=== PATIENT | female | born 1975 | race Caucasian/White ===

== ENCOUNTER 2019-12-07 10:22 | Emergency (ER) | payer OTHER ==
[2019-12-07] MEDS ORDERED: TORAdol 30 mg Injection IM ONE (10:50)
[2019-12-07] MEDS ORDERED: Phenergan 25 MG INJ IM ONE (10:50)
--- NOTE | 2019-12-07 10:58 | ERPHSYRPT ---
- History of Present Illness Time Seen by Provider: 12/07/19 10:40 Source: patient Patient Subjective Stated Complaint: Pt stated that she was walking out of a house and slipped and her right knee went behind her and her right foot rolled causing pain to both Triage Nursing Assessment: Pt brought to the ER by her , pt unable to stand on right leg or foot, swelling to lateral right ankle, tachycardic, rates pain as 6 when not touching, denies hitting head or losing conscousness Physician History: Patient is a 44-year-old female presents to our ED with complaints of right knee ankle and foot pain. Patient states she had a slip and fall prior to arrival. Patient inverted her right ankle and hyperflexed her right knee. Patient fell to the ground. No other injuries. No BHT or LOC. No neck pain. Pain described as an ache that is well localized. No radiation. Pain worse with movement and palpation. Pain improved with rest. Symptoms are mild to moderate in intensity. Patient is otherwise healthy. She voices no other complaints at this time. Patient denies the possibility of . Method of Injury: fell Occurred: just prior to arrival Quality: constant Severity of Pain-Max: moderate Severity of Pain-Current: mild Lower Extremities Pain: knee: right, thigh: left, foot: right, ankle: right Modifying Factors: Improves With: nothing, movement Allergies/Adverse Reactions: No Known Drug Allergies Allergy (Verified 12/07/19 10:43) Home Medications: Buspirone HCl [Buspar] 15 mg PO BID 12/07/19 [History] Cyclobenzaprine HCl 10 mg [Cyclobenzaprine 10 MG] 10 mg PO BID 12/07/19 [History] Duloxetine HCl 30 mg [Cymbalta 30 MG Capsule] 30 mg PO DAILY 12/07/19 [History] Norethindrone-E.estradiol-Iron [Junel Fe 1 mg-20 Mcg Tablet] 1 tab PO DAILY 12/07/19 [History] Zolpidem Tartrate 5 mg [Ambien 5 MG Tablet] 5 mg PO DAILY 12/07/19 [History] Travel Risk - International Travel Have you traveled outside of the country in past 3 weeks: No - Coronavirus Screening Are you exhibiting any of the following symptoms?: No Close contact with a COVID-19 positive Pt in past 14-21 Days: No - Review of Systems Constitutional: No Symptoms, No Fever, No Chills Eyes: No Symptoms Ears, Nose, & Throat: No Symptoms Respiratory: No Symptoms, No Cough, No Dyspnea Cardiac: No Symptoms, No Chest Pain, No Edema, No Syncope Abdominal/Gastrointestinal: No Symptoms, No Abdominal Pain, No Nausea, No Vomiting, No Diarrhea Genitourinary Symptoms: No Symptoms, No Dysuria Musculoskeletal: No Symptoms, No Back Pain, No Neck Pain Skin: No Rash Neurological: No Symptoms, No Dizziness, No Focal Weakness, No Sensory Changes Psychological: No Symptoms Endocrine: No Symptoms Hematologic/Lymphatic: No Symptoms Immunological/Allergic: No Symptoms All Other Systems: Reviewed and Negative - Past Medical History Pertinent Past Medical History: Yes Musculoskeletal History: Fibromyalgia Psycho-Social History: Anxiety - Past Surgical History Past Surgical History: Yes Gastrointestinal: Cholecystectomy Female Surgical History: Dilation & Curettage, Tubal Ligation - Social History Smoking Status: Never smoker Exposure to second hand smoke: No Drug Use: none Patient Lives Alone: No - Female History Hx Last Menstrual Period: 11/29/2019 Hx Now: No - Nursing Vital Signs Nursing Vital Signs: Initial Vital Signs Temperature 98.0 F 12/07/19 10:34 Pulse Rate 115 H 12/07/19 10:34 Blood Pressure 125/92 12/07/19 10:34 O2 Sat by Pulse Oximetry 96 12/07/19 10:34 Pain Scale Pain Intensity 6 - Physical Exam General Appearance: alert Eyes, Ears, Nose, Throat Exam: moist mucous membranes Neck Exam: non-tender, supple Cardiovascular/Respiratory Exam: chest non-tender, normal breath sounds, regular rate/rhythm, no respiratory distress Gastrointestinal/Abdominal Exam: non-tender, guarding Back Exam: normal inspection, No vertebral tenderness Hips Exam: bilateral: non-tender, normal inspection, normal range of motion, no evidence of injury Legs Exam: bilateral leg: non-tender, normal inspection, normal range of motion, no evidence of injury Knees Exam: bilateral knee: non-tender, normal inspection, normal range of motion, no evidence of injury Ankle Exam: right ankle: limited range of motion, pain, left ankle: non-tender, normal inspection, normal range of motion, no evidence of injury Foot Exam: right foot: limited range of motion, pain, swelling (Tenderness to palpation at right knee right ankle and foot PT DP pulses palpable. Compartments are soft. Cap refill less than 2 seconds. Range of motion limited by pain at knee and ankle joint.), left foot: non-tender, normal inspection, normal range of motion, no evidence of injury Neuro/Tendon Exam: normal sensation, normal motor functions Mental Status Exam: alert, oriented x 3, cooperative Skin Exam: normal color, warm, dry SpO2 Interpretation: normal SpO2: 96 O2 Delivery: Room Air - Course Nursing assessment & vital signs reviewed: Yes - Radiology Exams Ankle X-ray Interpretation: Teleradiologist Report (Soft tissue swelling and small posterior heel spur. No other bony articular or soft tissue abnormalities.) Foot X-ray Interpretation: Teleradiologist Report (3 nonweightbearing views of the right foot demonstrate small posterior heel spur no other bony articular or soft tissue abnormalities.) Knee X-ray Interpretation: Teleradiologist Report (Right knee demonstrates minimal medial joint space narrowing and tiny patella spurring. No bony articular soft tissue abnormalities.) Ordered Tests: Active Orders 24 hr Category Date Time Status ANKLE (3 VIEWS) Stat Exams 12/07/19 10:51 Completed FOOT (MINIMUM 3 VIEWS) Stat Exams 12/07/19 10:51 Completed KNEE (1 OR 2 VIEW) Stat Exams 12/07/19 10:51 Completed Medication Summary Discontinued Medications Generic Name Dose Route Start Last Admin Trade Name Freq PRN Reason Stop Dose Admin Ketorolac Tromethamine 60 mg 12/07/19 10:50 12/07/19 11:21 Toradol 30 Mg Injection IM 12/07/19 10:51 60 mg STAT ONE Administration Ketorolac Tromethamine Confirm 12/07/19 11:19 Toradol 30 Mg Injection Administered 12/07/19 11:20 Dose 30 mg .ROUTE .STK-MED ONE Ketorolac Tromethamine Confirm 12/07/19 11:22 Toradol 30 Mg Injection Administered 12/07/19 11:23 Dose 30 mg .ROUTE .STK-MED ONE Ketorolac Tromethamine Confirm 12/07/19 11:24 Toradol 30 Mg Injection Administered 12/07/19 11:25 Dose 30 mg .ROUTE .STK-MED ONE Promethazine HCl 25 mg 12/07/19 10:50 12/07/19 11:21 Phenergan 25 Mg Inj IM 12/07/19 10:51 25 mg STAT ONE Administration Promethazine HCl Confirm 12/07/19 11:19 Phenergan 25 Mg Inj Administered 12/07/19 11:20 Dose 25 mg .ROUTE .STK-MED ONE Promethazine HCl Confirm 12/07/19 11:24 Phenergan 25 Mg Inj Administered 12/07/19 11:25 Dose 25 mg .ROUTE .STK-MED ONE - Progress Progress: improved Progress Note: 12/07/19 12:11 Patient reassessed. Pain improved. Aramis wrap provided. Bilateral axillary crutches provided no fractures or dislocations. Patient agrees to follow-up with her primary care doctor within 48 hours for reevaluation. Counseled pt/family regarding: diagnosis, need for follow-up, rad results - Departure Departure Disposition: Home (The) Clinical Impression: Heel spur, Fall, Ankle sprain, Knee sprain Condition: Stable Critical Care Time: No Referrals: DARLINE BURCH MD [Primary Care Provider] - Additional Instructions: Discharge/Care Plan APARNA RAMOS was seen on 12/07/19 in the Emergency Room. The patient was counseled regarding Diagnosis,Lab results, Imaging studies, need for follow up and when to return to the Emergency Room. Prescriptions given: Discharge Note I have spoken with the patient and/or caregivers. I have explained the patient's condition, diagnosis and treatment plan based on the information available to me at this time. I have answered the patient's and/or caregiver's questions and addressed any concerns. The patient and/or caregivers have as good understanding of the patient's diagnosis, condition and treatment plan as can be expected at this point. The vital signs have been stable. The patient's condition is stable and appropriate for discharge from the emergency department. The patient will pursue further outpatient evaluation with the primary care physician or other designated or consulting physician as outlined in the discharge instructions. The patient and/or caregivers are agreeable to this plan of care and follow-up instructions have been explained in detail. The patient and/or caregivers have received these instruction. The patient/and or caregivers are aware that any significant change in condition or worsening of symptoms should prompt an immediate return to this or the closest emergency department or call 911.
[2019-12-07] MEDS ORDERED: TORAdol 30 mg Injection ONE ×3 (11:19→11:24)
[2019-12-07] MEDS ORDERED: Phenergan 25 MG INJ ONE ×2 (11:19→11:24)
--- NOTE | 2019-12-07 11:39 | XRAY ---
Indication: Pain following fall. Comparison: None AP/crosstable lateral right knee demonstrates minimal medial joint space narrowing and tiny patella spurring. No other bony, articular, or soft tissue abnormalities.
--- NOTE | 2019-12-07 11:39 | XRAY ---
Indication: Pain following fall. Comparison: None 3 view right ankle demonstrates mild soft tissue swelling and small posterior heel spur. No other bony, articular, or soft tissue abnormalities.
--- NOTE | 2019-12-07 11:41 | XRAY ---
Indication: Pain following fall. Comparison: None 3 nonweightbearing views right foot demonstrates small posterior heel spur. No other bony, articular, or soft tissue abnormalities.
[2019-12-07 11:48] VITALS: BP 174/94; PULSE 104
[2019-12-07 12:08] VITALS: O2SAT 96
== END 2019-12-07 12:20 | disposition home or self-care (01) ==
LOC: ED 10:22
DX: M77.30 Calcaneal spur, unspecified foot (principal); W01.198A Fall on same level from slipping, tripping and stumbling with subsequent striking against other object, initial encounter; Y93.89 Activity, other specified; Y92.9 Unspecified place or not applicable; S93.401A Sprain of unspecified ligament of right ankle, initial encounter; S83.91XA Sprain of unspecified site of right knee, initial encounter; M79.89 Other specified soft tissue disorders; Z79.899 Other long term (current) drug therapy; F41.9 Anxiety disorder, unspecified
CPT/HCPCS: 73560; 73610; 73630; 96372; 99284; J1885; J2550

== ENCOUNTER 2021-01-15 06:28 | Day surgery (SDC) | payer OTHER ==
[2021-01-15] MEDS ORDERED: Zofran 4 MG/2 ML VIAL ONE ×2 (06:51→08:36)
[2021-01-15] MEDS ORDERED: CEFAZOLIN 2 GM-D5W BAG** 2 GM/50 ML ML IV ONE (06:51)
[2021-01-15] MEDS ORDERED: Pepcid 20 MG VIAL IV ONE ×2 (06:51→06:52)
[2021-01-15] MEDS ORDERED: Zofran 4 MG/2 ML VIAL IV STA (06:52)
[2021-01-15] MEDS ORDERED: Lactated Ringers 1,000 ML IV SCH (07:00)
[2021-01-15] MEDS ORDERED: CEFAZOLIN 2 GM-D5W BAG** 2 GM/50 ML ML IV SCH (07:00)
[2021-01-15] MEDS ORDERED: Reglan 10 MG/2 ML IV ONE (07:37)
[2021-01-15] MEDS ORDERED: Xylocaine-Mpf 2% 5 Ml Vial ONE (08:36)
[2021-01-15] MEDS ORDERED: SUBLIMAZE 100 MCG/2 ML ONE ×2 (08:36→09:20)
[2021-01-15] MEDS ORDERED: DIPRIVAN 200 MG/20 ML IV ONE (08:36)
[2021-01-15] MEDS ORDERED: Decadron 4 MG INJ ONE (08:36)
[2021-01-15] MEDS ORDERED: Compazine 10 MG/2 ML ONE (09:20)
[2021-01-15 10:16] VITALS: O2SAT 94
[2021-01-15 10:26] VITALS: BP 133/77; PULSE 101
--- NOTE | 2021-01-16 09:12 | OP ---
SURGERY DATE/TIME: 01/15/2021 0839 PREOPERATIVE DIAGNOSIS: Abnormal uterine bleeding. POSTOPERATIVE DIAGNOSIS: Abnormal uterine bleeding. PROCEDURE: Hysteroscopy D&C with NovaSure ablation. SURGEON: Amari Burnett D.O. FENDER MECHANIC APPRENTICE: Bryn Deras surgical technician. ANESTHESIA: General. ESTIMATED BLOOD LOSS: Minimal. COMPLICATIONS: None. INDICATIONS: The risks, benefits, indications and alternatives of the procedure were reviewed with the patient prior to the procedure. The patient understood the risk of infection, bleeding, bowel injury, bladder injury, ureteral injury, uterine perforation, pelvic infection, thromboembolic disorder associated with the surgery however desires to have this surgery as a possible means to alleviate her current medical condition. DESCRIPTION OF PROCEDURE AND FINDINGS: At this point the patient is taken to the operating room, given general sedation, placed in dorsal lithotomy position. Prepped and draped in the usual sterile fashion. A weighted speculum is then placed in the patient's vagina and the anterior lip of the cervix was grasped with a single tooth tenaculum. Endocervical dilators were advanced through the endocervical canal as a means to dilate the cervix and the uterus was sounded to approximately 9 cm. From this point a 5 mm hysteroscope was then advanced through the endocervical canal where visualization revealed no gross abnormalities within the uterine cavity. The hysteroscope was then removed and the curette was then placed in towards the fundus of the uterus where curettage was performed in all quadrants of the uterus retrieving moderate amount of endometrial tissue. From this point hemostasis was obtained. From this point the NovaSure was then taken and was then taken through the endocervical canal toward the fundal region retracted approximately 1 cm and was then engaged. The NovaSure machine was then turned on for an ablative time of 1 minute and 11 seconds. The length was measured at 6 cm and the width was 3.5 cm. After completion of the ablation the NovaSure was disengaged and removed from the uterine cavity without complication. At this point hemostasis was obtained. At this point all instruments were then removed from the patient's vaginal region. The patient was then taken out of the dorsal lithotomy position, was taken out of anesthesia and was then taken to the recovery room in stable condition. All instruments and laps were accounted for x2.
== END 2021-01-15 10:18 | disposition home or self-care (01) ==
LOC: SDC 06:28
PROVIDERS: ATTEND Obstetrics & Gynecology
DX: N93.9 Abnormal uterine and vaginal bleeding, unspecified (principal); Z79.899 Other long term (current) drug therapy
CPT/HCPCS: 84703; 88305; J0690; J1100; J2405; J2704; J3010

== ENCOUNTER 2022-10-02 05:56 | Day surgery (SDC) | payer OTHER ==
[2022-10-02 06:17] LABS: HCG URINE TEST NEGATIVE (NEGATIVE)
[2022-10-02] MEDS ORDERED: Lactated Ringers 1,000 ML IV SCH (06:30)
[2022-10-02] MEDS ORDERED: Versed 2 MG/2 ML Injection IV PRN (07:18)
[2022-10-02] MEDS ORDERED: DIPRIVAN 200 MG/20 ML IV ONE ×2 (07:36→07:45)
[2022-10-02] MEDS ORDERED: Versed 2 MG/2 ML Injection ONE (07:36)
[2022-10-02] MEDS ORDERED: SUBLIMAZE 100 MCG/2 ML ONE (07:44)
[2022-10-02 08:52] VITALS: BP 97/77; PULSE 89; O2SAT 98
--- NOTE | 2022-10-02 09:13 | OP ---
SURGERY DATE/TIME: 10/02/2022 0734 PREOPERATIVE DIAGNOSIS: Screening colonoscopy. POSTOPERATIVE DIAGNOSIS: Normal colon. PROCEDURE: Colonoscopy. SURGEON: Graeme Martin M.D. ANESTHESIA: MAC by Fransisco Salgado CRNA. ESTIMATED BLOOD LOSS: None. SPECIMENS: None. DESCRIPTION OF PROCEDURE: After informed written consent was obtained, the patient was taken to the endoscopy suite. She was placed in the left lateral decubitus position and anesthesia was titrated to desired level of consciousness. Digital rectal exam showed normal sphincter tone and no internal lesions. The scope was inserted into the rectum and the entire colonic mucosa was traversed. There was some difficulty as she had a long tortuous colon but the level of the cecum was reached and verified with direct visualization of the ileocecal valve. Upon withdrawal careful mucosal inspection revealed no gross abnormalities. Prior to withdrawal retroflexion was performed and showed no internal lesions. The scope was removed. The patient was transferred to the recovery room in good condition. Of note, the patient had periods of apnea and increased oxygen requirement during the exam. Anesthesia expressed high likelihood of obstructive sleep apnea and recommended sleep study. I have discussed this with the patient's .
== END 2022-10-02 09:00 | disposition home or self-care (01) ==
LOC: SDC 05:56
PROVIDERS: ATTEND Family Medicine
DX: Z12.11 Encounter for screening for malignant neoplasm of colon (principal); G47.30 Sleep apnea, unspecified
CPT/HCPCS: 81025; J2250; J2704; J3010

== ENCOUNTER 2023-12-01 07:46 | Day surgery (SDC) | payer BC ==
[2023-12-01] MEDS ORDERED: CEFAZOLIN 2 GM/100 ML NaCl 2 GM/100 ML IVPB IV ONE (08:01)
[2023-12-01] MEDS: TYLENOL EXTRA STRENGTH 500 MG PO ONE (08:04)
[2023-12-01] MEDS: celeBREX 100 MG PO ONE (08:04)
[2023-12-01] MEDS: NEURONTIN PO ONE (08:04)
[2023-12-01] MEDS: Lactated Ringers 1,000 ML IV SCH (08:05)
[2023-12-01] MEDS: Decadron 4 MG PO ONE (08:05)
[2023-12-01 08:17] VITALS: RESP 18
[2023-12-01] MEDS: CEFAZOLIN 2 GM/100 ML NaCl 2 GM/100 ML IVPB IV SCH (08:20)
[2023-12-01 08:26] LABS: Absolute Neutrophil Ct (ANC) 5.62 x10^3/uL (1.56-6.13); BASOPHIL % 0.4 % (0.1-1.2); Basophil (Absolute #) 0.03 x10^3/uL (0.01-0.08); Eosinophil (Absolute #) 0.16 x10^3/uL (0.04-0.36); Hematocrit 38.2 % (34.1-44.9); Hemoglobin 12.5 g/dL (11.2-15.7); IMMATURE GRAN # 0.05 x10^3u/L (0.001-0.031); IMMATURE GRAN % 0.6 % (0.001-0.429); Lymphocyte (Absolute #) 1.77 x10^3/uL (1.18-3.74); Lymphocytes % 21.7 % (19.3-51.7); Mean Cell Volume 90.3 fL (79.4-94.8); Mean Corpuscular Hemoglobin 29.6 pg (25.6-32.2); Mean Corpuscular Hgb Concent. 32.7 g/dL (32.2-35.5); Monocyte (Absolute #) 0.53 x10^3/uL (0.24-0.86); Monocytes % 6.5 % (4.7-12.5); Neutrophil % 68.8 % (34.0-71.1); Platelet Count 299 x10^3/uL (182-369); Red Blood Count 4.23 x10^6/uL (3.93-5.22); Red Cell Distribution Width 13.4 % (11.7-14.4); White Blood Count 8.2 x10^3/uL (3.98-10.04)
[2023-12-01 08:50] LABS: ANION GAP 11.8 MEQ/L (5-15); Calcium 9.1 mg/dL (8.4-10.2); Creatinine 1 0.53 mg/dL (0.52-1.04); EST GLOMERULAR FILTRATION RATE 112.6 ML/MIN; Potassium 4.3 mmol/L (3.5-5.1)
[2023-12-01 08:53] LABS: HCG SERUM TEST NEGATIVE (NEGATIVE)
[2023-12-01] MEDS: Versed 2 MG/2 ML Injection IV ONE (09:30)
[2023-12-01] MEDS ORDERED: Marcaine 0.5%/Epinephrine 10 ML ONE (10:07)
[2023-12-01] MEDS ORDERED: Naropin 0.5% 30 ML VIAL ONE (10:07)
[2023-12-01] MEDS ORDERED: SUBLIMAZE 100 MCG/2 ML ONE ×2 (10:40→13:36)
[2023-12-01] MEDS ORDERED: ROCURONIUM BROMIDE IV ONE (10:41)
[2023-12-01] MEDS ORDERED: DIPRIVAN 200 MG/20 ML IV ONE (10:41)
[2023-12-01] MEDS ORDERED: Versed 2 MG/2 ML Injection ONE (10:43)
[2023-12-01] MEDS ORDERED: REMIFENTANIL HCL IV ONE (11:34)
[2023-12-01] MEDS ORDERED: BRIDION 200MG/2ML IV ONE (12:54)
--- NOTE | 2023-12-01 13:02 | XRAY ---
Indication: Left ankle ORIF. Syndesmosis fixation. Intraoperative fluoroscopy provided for 2 minutes 45 seconds. Numerous digital spot and cine images submitted for interpretation ultimately demonstrates lateral fixation plate and 6 screws fixating lateral malleolus fracture in good apposition/alignment. Correlate with intraoperative findings/report.
[2023-12-01] MEDS ORDERED: Hydromorphone 1 mg/ml Injection ONE ×2 (13:37→14:23)
[2023-12-01] MEDS ORDERED: Zofran 4 MG/2 ML VIAL ONE (14:00)
[2023-12-01 15:17] VITALS: BP 119/92; PULSE 115; TEMP 97.5; O2SAT 92
--- NOTE | 2023-12-01 15:17 | XRAY ---
Two minutes and 45 seconds of fluoroscopy was used in surgery for a left ankle ORIF. Syndesmosis fixation.
--- NOTE | 2023-12-02 12:43 | OP ---
SURGERY DATE/TIME: 12/01/2023 7788 - [id number] PREOPERATIVE DIAGNOSES: 1) Left ankle fracture, bimalleolar equivalent. 2) Syndesmotic disruption. 3) Pain, left ankle. 4) Instability with gait. POSTOPERATIVE DIAGNOSES: 1) Left ankle fracture, bimalleolar equivalent. 2) Syndesmotic disruption. 3) Pain, left ankle. 4) Instability with gait. PROCEDURE: Open reduction and internal fixation left ankle bimalleolar equivalent with a 2 syndesmotic ligament repair. SURGEON: Luiz Hassan MD ANESTHESIA: General plus popliteal block postoperatively. HEMOSTASIS: Thigh tourniquet set to 300 mmHg for a total of 42 total tourniquet minutes. ESTIMATED BLOOD LOSS: Approximately 2 mL. MATERIALS: An ALTS MVX ankle 6 hole one-third tubular with a combination of long locking screws with two 3.5 x 48 and 42 syndesmotic screws 4-0 Monocryl and 3-0 nylon. INJECTABLES: See anesthesia report for details. INDICATIONS FOR PROCEDURE: The patient is a very pleasant 48-year-old woman. The patient has fallen in her yard resulting in a twisting and a popping sensation to her ankle. X-rays were taken demonstrating a fracture of the fibula. There were some faint radiolucencies over the posterior malleolus, which a CT was obtained, demonstrating a posterior malleolar fracture. By Lauge-Myers classification, this does demonstrate at least disruption from the AITFL, the fibula, as well as the PITFL/posterior malleolar fracture, which does classify this as an unstable fracture and a surgical issue. Patient has been made aware of all risks, complications and benefits of surgical intervention at this time, including but not limited to infection, hematoma, seroma, possibility of delayed wound healing, nonwound healing, and possible need for further surgical intervention at a later date. No guarantees were provided as to the outcome of surgery at this time. Plenty of time was allowed for her and her to ask questions, which were answered to their apparent satisfaction. At this time, we decided to proceed. DESCRIPTION OF PROCEDURE AND FINDINGS: Patient was brought into the operating room, placed on the operating room table in the supine position. At this time, general anesthesia was administered until the patient was adequately sedated. Following this, the left lower extremity was prepped and draped in a typical sterile fashion. Prior to prepping and draping the leg, a well-padded thigh tourniquet was applied to the patient's left thigh and the tourniquet was set to 300 mmHg. At this time, under fluoroscopic guidance, the lateral aspect of the fibula was identified. The bisection of the fibula was obtained and a skin marker was utilized to bruna out the site. Following this, a linear incision utilizing a 10 blade was carried down through that same marker site, quickly finding the fracture site, which was cleansed with copious amounts of sterile saline and the hematoma was released from the fracture site at this time. A pointed reduction forceps was introduced and a 6 hole one-third tubular plate was introduced laterally, making sure the position was adequate and fixating with a combination of locking and nonlocking screws. Following this, the syndesmosis was reduced. It was stressed, deeming there was gapping of the tibial-fibular overlap. Decision was made at this time to proceed with syndesmotic fixation. Given patient's body habitus, decision was made to proceed with 3.5 mm screws, one measuring 42 mm proximally and 48 mm distally. The orientation was checked and deemed to be in an adequate position, making sure that the fibula was sitting within the incisura while holding the reduction anteriorly. From that standpoint, final pictures were taken. Copious amounts of sterile saline were utilized to flush the surgical site. Following this, a 4-0 Monocryl was utilized to coapt the subcutaneous skin edges and the skin was then everted in a horizontal mattress-type fashion with 3-0 nylon. Following this, a dressing consisting of Betadine, Adaptic, 4 x 4, Kerlix, ABD and a well-padded posterior splint with sugar-tong was applied to the left lower extremity with the foot orthogonal relative to the longitudinal axis of the leg. Patient was then provided a popliteal and saphenous block in the OR prior to awakening. Then, was reversed from anesthesia and returned to the postoperative anesthesia care unit with vital signs stable and vascular status intact. Patient handled the anesthesia as well as the procedure without significant complication. Postoperative orders as indicated in the patient's discharge chart.
== END 2023-12-01 15:30 | disposition home or self-care (01) ==
LOC: SDC 07:46
PROVIDERS: ATTEND Podiatrist Foot & Ankle Surgery
DX: S82.842A Displaced bimalleolar fracture of left lower leg, initial encounter for closed fracture (principal); S93.432A Sprain of tibiofibular ligament of left ankle, initial encounter; M25.572 Pain in left ankle and joints of left foot; R26.89 Other abnormalities of gait and mobility
CPT/HCPCS: 27814; 27829; 36415; 73610; 76000; 76937; 80048; 84703; 85025; 93005; C1713; C1769; J0690; J1170; J2250; J2405; J2704; J2795; J3010; A9270-GY

== ENCOUNTER 2025-03-21 06:31 | Day surgery (SDC) | payer OTHER ==
[2025-03-21] MEDS ORDERED: CEFAZOLIN SODIUM ONE (07:02)
[2025-03-21] MEDS: Lactated Ringers 1,000 ML IV SCH (07:15)
[2025-03-21 07:20] VITALS: RESP 18
[2025-03-21 07:41] LABS: HCG SERUM TEST NEGATIVE (NEGATIVE)
[2025-03-21 07:42] LABS: Calcium 9.3 mg/dL (8.4-10.2); Carbon Dioxide 23.0 mmol/L (22-30); Creatinine 1 0.79 mg/dL (0.52-1.04); EST GLOMERULAR FILTRATION RATE 90.5 ML/MIN; Glucose 154.0 mg/dL (74-106); Potassium 4.2 mmol/L (3.5-5.1)
[2025-03-21] MEDS ORDERED: Versed 2 MG/2 ML Injection ONE (09:14)
[2025-03-21] MEDS ORDERED: SUBLIMAZE 100 MCG/2 ML ONE ×3 (09:14→11:27)
[2025-03-21] MEDS ORDERED: Pre-Attached Lta Kit TP ONE (09:14)
[2025-03-21] MEDS ORDERED: TORAdol 30 mg Injection ONE (09:19)
[2025-03-21] MEDS ORDERED: propofoL IV ONE ×2 (09:19→09:20)
[2025-03-21] MEDS ORDERED: Zofran 4 MG/2 ML VIAL ONE ×2 (09:19→11:43)
[2025-03-21] MEDS ORDERED: DEXMEDETOMIDINE 80 MCG/20ML-NS IV ONE (09:19)
[2025-03-21] MEDS ORDERED: Quelicin Fliptop 200 MG/10 ML ONE (09:19)
[2025-03-21] MEDS ORDERED: PHENYLEPHRINE HCL ONE (09:43)
[2025-03-21] MEDS ORDERED: Ephedrine Sulfate 50 MG/ML ONE (09:43)
[2025-03-21] MEDS ORDERED: ROBINUL ONE (09:45)
[2025-03-21] MEDS ORDERED: ROCURONIUM BROMIDE IV ONE ×2 (09:50→10:44)
[2025-03-21] MEDS ORDERED: Sensorcaine 0.25% 10 ML ONE (10:23)
[2025-03-21] MEDS ORDERED: Lactated Ringers 1,000 ML IV ONE (10:25)
[2025-03-21] MEDS ORDERED: DILAUDID 0.5 MG/0.5 ML SYRINGE ONE (11:27)
[2025-03-21 12:36] VITALS: BP 105/67; PULSE 102; O2SAT 96
[2025-03-21 12:40] VITALS: TEMP 96.7
--- NOTE | 2025-03-23 12:20 | OP ---
SURGERY DATE/TIME: 03/21/2025 [id number] PREOPERATIVE DIAGNOSES: 1) Postmenopausal bleeding. 2) History of previous endometrial ablation. POSTOPERATIVE DIAGNOSES: 1) Postmenopausal bleeding. 2) History of previous endometrial ablation. 3) Inadvertent uterine perforation. PROCEDURE: Hysteroscopy, dilatation and curettage, with subsequent diagnostic laparoscopy. SURGEON: Stevie Burnett DO WORK ORDER CLERK: Viji Lee ANESTHESIA: General. ESTIMATED BLOOD LOSS: Minimal. COMPLICATIONS: None. INDICATIONS: The risks, benefits, indications, and alternatives of the procedure were reviewed with the patient prior to procedure. Patient understood the risk of infection, bleeding, bowel injury, bladder injury, ureteral injury, uterine perforation, pelvic infection, thromboembolic disorder associated with the surgery, and desired to have the surgery as a possible means to alleviate her current medical condition. DESCRIPTION OF PROCEDURE AND FINDINGS: At this point, the patient was taken to the operating room, given general sedation, placed in dorsal lithotomy position, and prepped and draped in the usual sterile fashion. A weighted speculum was then placed in the patient's vagina and the anterior lip of the cervix was grasped with a single-tooth tenaculum. Endocervical dilators were advanced through the endocervical canal as a means to dilate the cervix and a 5 mm hysteroscope was then placed into the uterus where visualization appeared to have significant scarring within the uterine lining and as a result of dilation of her cervix, there appeared to be a tear within the fundal region of her uterus at this point. A curette was then placed in through the endocervical region for mild to moderate amount of curettage, understanding the tear in the fundal region of her uterus. Attention was then turned to the patient's abdomen where at this time it was determined to proceed with laparoscopy to determine the extent of the uterine tear in the fundal region. Attention was then turned to the patient's abdomen where a 5 mm skin incision was made approximately 1 cm above the umbilicus where a 5 mm trocar and sleeve were advanced under direct visualization. Then, 4 L of CO2 gas was then inserted and at this point, the patient was noted to have a significant omental adhesion secondary to her history of removal of her gallbladder in the past. An additional incision was then made in the left middle quadrant region where a 5 mm trocar and sleeve were advanced under direct visualization. A third incision was made in the left lower quadrant region where a 5 mm incision was made and a 5 mm trocar and sleeve were advanced under direct visualization secondary to the extensive abdominal adhesions that were noted. Lysis of adhesions were taken place using the LigaSure and the grasper for proper visualization in the pelvic region. In the pelvic region, it was identified that the patient had a small tear less than 1 cm with minimal bleeding that was noted, and the bipolar instrument was used to coagulate the minimal bleeding that was noted on the fundal region of the uterus but did not require any suturing. The remainder of the pelvis appeared to be within normal limits. Lysis of adhesion was taking place in the abdominal region; however, there remained significant abdominal adhesion. From this point, all instruments were removed from the patient's abdominal region and the incisions were closed with 4-0 Monocryl suture. Patient was then taken out of the dorsal lithotomy position, was taken out of anesthesia and was then taken to the recovery room in stable condition. All instruments and laps were accounted for x2.
== END 2025-03-21 12:40 | disposition home or self-care (01) ==
LOC: SDC 06:31
PROVIDERS: ATTEND Obstetrics & Gynecology
DX: N95.0 Postmenopausal bleeding (principal); N99.85 Post endometrial ablation syndrome; N99.71 Accidental puncture and laceration of a genitourinary system organ or structure during a genitourinary system procedure; E11.9 Type 2 diabetes mellitus without complications; E78.5 Hyperlipidemia, unspecified; K66.0 Peritoneal adhesions (postprocedural) (postinfection)